=== PATIENT | male | born 1975 | race American Indian/Alaskan Native ===

== ENCOUNTER 2024-03-14 21:55 | Emergency (ER) | payer OTHER | END 2024-03-14 22:42 | disposition home or self-care (01) | LOC: FB.ED 21:55 | DX: S01.01XA Laceration without foreign body of scalp, initial encounter (principal); W01.0XXA Fall on same level from slipping, tripping and stumbling without subsequent striking against object, initial encounter; Y99.0 Civilian activity done for income or pay | CPT/HCPCS: 12002; 99282; 99283 ==